=== PATIENT | female | born 1995 | race Caucasian/White ===

== ENCOUNTER 2018-08-01 14:35 | Emergency (ER) | payer OTHER ==
[2018-08-01 14:41] VITALS: BP 112/60; PULSE 86; TEMP 97.3; BMI 19.3
--- NOTE | 2018-08-01 14:52 | PDOC ---
Attending Attestation - Resident Resident Name: Elif Moralez - ED Attending Attestation I have performed the following: I have examined & evaluated the patient, The case was reviewed & discussed with the resident, I agree w/resident's findings & plan, Exceptions are as noted - HPI HPI: 08/01/18 16:51 Agree with Residents HPI - Physicial Exam PE: 08/01/18 16:51 Agree with Residents PE - Medical Decision Making 08/01/18 16:5 89 years old past medical history significant for seizure disorder unknown when last grand mal seizure was patient states she was drinking last night did not sleep well had a grand mal seizure today. Patient states she is compliant with her Depakote. Nonfocal neurologic examination but complaining of moderate headache Given headache we'll CT head dictation by mouth dose of today's Depakote hydrate observed and reassessed. No acute findings on patient's head CT. Patient's Depakote level returned subtherapeutic. Patient now endorses missing several doses of her medication. States she has enough medication at home. We gave her her full dose today. She will continue to take her medications exactly as prescribed and follow up with her neurologist next week. Findings, the need for follow-up and strict return instructions discussed with patient.
[2018-08-01] MEDS ORDERED: ONDANSETRON 4 MG/2 ML VIAL IVPUSH ONE (15:16)
[2018-08-01] MEDS ORDERED: ACETAMINOPHEN 1000 MG/100 ML VIAL (NON FORMULARY) IVPB ONE (15:16)
--- NOTE | 2018-08-01 15:16 | PDOC ---
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 The patient subsequently called EMS. The patient denies urinating on herself but admits to biting her tongue. At bedside she complains of generalized headache and nausea. The patient takes 1000mg daily of depakote for her seizures and last took her medication last night. She denies any recent changes in seizure medications or dosages. She admits to excessive alcohol use last night and marijuana use this morning but denies any other recreational drug use. Denies recent illness, fevers, dysuria, diarrhea, constipation, shortness of breath or chest pain. She started having seizures at the age of 13 for unknown reasons, her last seizure was 1 year ago. She has no other complaints at bedside. PMHX: as in HPI PSHX: see below Meds: fluoxetine, depakote Allergies: sulfa Tob: none Etoh: as in HPI Rec drugs: as in HPI Past History - Past Medical History Allergies/Adverse Reactions: Allergies Allergy/AdvReac Type Severity Reaction Status Date / Time Sulfa (Sulfonamide Allergy Verified 08/01/18 15:09 Antibiotics) zonisamide Allergy Verified 08/01/18 15:09 Home Medications: Ambulatory Orders Divalproex [Depakote] 1,000 mg PO HS 06/05/13 Fluoxetine HCl 20 mg PO HS 08/01/18 COPD: No Seizures: Yes - Suicide/Smoking/Psychosocial Hx Smoking Status: Yes Smoking History: Current some day smoker Number of Cigarettes Smoked Daily: 2 Information on smoking cessation initiated: No *Physical Exam - Vital Signs Last Vital Signs Temp Pulse Resp BP Pulse Ox 97.3 F L 86 18 112/60 100 08/01/18 14:38 08/01/18 14:38 08/01/18 14:38 08/01/18 14:38 08/01/18 14:38 - Physical Exam Comments: 08/01/18 15:25 PERRLA, EOMI L tongue swelling, no abrasions CTAB RRR No CVA tenderness, no abd tenderness ED Treatment Course - LABORATORY CBC & Chemistry Diagram: 08/01/18 15:13 08/01/18 15:13 Medical Decision Making - Medical Decision Making 08/01/18 15:26 23 year old with a history of depression (on fluoxetine) and seizures BIBA after having an unwitnessed seizure that was preceded by tingling in her hands 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 The patient subsequently called EMS. The patient denies urinating on herself but admits to biting her tongue. At bedside she complains of generalized headache and nausea. The patient takes 1000mg daily of depakote for her seizures and last took her medication last night. She denies any recent changes in seizure medications or dosages. She admits to excessive alcohol use last night and marijuana use this morning but denies any other recreational drug use. DDX including but not limited to: breakthrough seizure 2/2 substance use vs noncompliance vs vs intracranial bleed W/U: - cbc, cmp - depakote level - ekg - beta hcg TX: - 1L NS - Zofran - Tylenol - depakote load ED Course: Patient stable at bedside. tired appearing but pleasant. 08/01/18 18:05 Pt reassessed, resting comfortably. Patient stable for discharge. Given follow up instructions and strict return precautions. Patient expressed understanding and agreed to plan. *DC/Admit/Observation/Transfer Diagnosis at time of Disposition: Seizure - Discharge Dispostion Disposition: HOME Condition at time of disposition: Stable Decision to Admit order: No - Referrals Referrals: Tom Treadwell MD [Staff Physician] - - Patient Instructions Printed Discharge Instructions: DI for Seizure Disorder -- Adult Additional Instructions: You were seen in the ED for seizure. In the ED you were evaluated with labwork and imaging. Your results were unremarkable. There does not appear to be an acute need for immediate hospitalization. You are advised to follow up with your primary care physician and neurologist within 1 week. Return to the ED immediately if you experience repeat seizure, worsening headache or nausea, loss of consciousness, fevers, abdominal pain or chest pain. - Post Discharge Activity
[2018-08-01] MEDS ORDERED: ACETAMINOPHEN INJECTION 100 ML IVPB ONE (15:26)
[2018-08-01] MEDS ORDERED: DIVALPROEX SODIUM 500 MG TABLET E.C. ONE (15:26)
[2018-08-01] MEDS ORDERED: ONDANSETRON 4 MG/2 ML VIAL ONE (15:27)
[2018-08-01] MEDS ORDERED: SODIUM CHLORIDE 1,000 ML IV SCH (15:30)
[2018-08-01 15:40] LABS: BASO % 0.3 % (0-2.0); EOS % 0.8 % (0-4.5); HEMATOCRIT 39.2 % (32.4-45.2); HEMOGLOBIN 13.6 GM/dL (10.7-15.3); LYMPH % 16.5 % (8-40); MCHC 34.7 g/dl (32.0-36.0); MEAN CELL VOLUME 92.4 fl (80-96); MEAN PLT VOLUME 9.5 fl (7.5-11.1); MONO % 5.6 % (3.8-10.2); NEUT % 76.8 % (42.8-82.8); PLATELET COUNT 207 K/MM3 (134-434); RBC 4.25 M/mm3 (3.60-5.2); RDW 13.3 % (11.6-15.6)
[2018-08-01] MEDS: DIVALPROEX SODIUM 500 MG TABLET E.C. PO ONE ×2 (16:03→17:01)
[2018-08-01 16:32] LABS: ANION GAP 7 MMOL/L (8-16); BILIRUBIN,TOTAL 0.8 mg/dL (0.2-1.0); BLOOD UREA NITROGEN 12 mg/dL (7-18); CALCIUM 9.1 mg/dL (8.5-10.1); CHLORIDE 101 mmol/L (98-107); CO2 28 mmol/L (21-32); CREATININE 0.7 mg/dL (0.55-1.3); GLUCOSE,RANDOM 75 mg/dL (74-106); POTASSIUM 4.1 mmol/L (3.5-5.1); SGOT/AST 17 U/L (15-37); SGPT/ALT 21 U/L (13-61); SODIUM 136 mmol/L (136-145); TOT PROT 7.4 g/dl (6.4-8.2)
[2018-08-01 16:34] LABS: ALK PHOS 49 U/L (45-117)
--- NOTE | 2018-08-02 09:32 | EKG ---
Test Reason : Blood Pressure : / mmHG Vent. Rate : 077 BPM Atrial Rate : 077 BPM P-R Int : 130 ms QRS Dur : 090 ms QT Int : 400 ms P-R-T Axes : 059 078 043 degrees QTc Int : 452 ms NORMAL SINUS RHYTHM POSSIBLE LEFT ATRIAL ENLARGEMENT NO PREVIOUS ECGS AVAILABLE Confirmed by BISHNU TATE MD ([id number]) on 08/02/2018 9:32:18 AM Referred By: Confirmed By:BISHNU TATE MD
--- NOTE | 2018-08-04 22:17 | EKG ---
Test Reason : Blood Pressure : / mmHG Vent. Rate : 083 BPM Atrial Rate : 083 BPM P-R Int : 136 ms QRS Dur : 088 ms QT Int : 396 ms P-R-T Axes : 062 076 040 degrees QTc Int : 465 ms NORMAL SINUS RHYTHM NORMAL ECG NO PREVIOUS ECGS AVAILABLE Confirmed by ANETA TURNER MD ([id number]) on 08/04/2018 10:17:25 PM Referred By: Confirmed By:ANETA TURNER MD
== END 2018-08-01 19:12 | disposition home or self-care (01) ==
LOC: JER 14:35
PROC: 3E0337Z Introduction of Electrolytic and Water Balance Substance into Peripheral Vein, Percutaneous Approach (ICD-10-PCS; principal; 2018-08-01)
PROC: 3E033NZ Introduction of Analgesics, Hypnotics, Sedatives into Peripheral Vein, Percutaneous Approach (ICD-10-PCS; 2018-08-01)
PROC: 3E033GC Introduction of Other Therapeutic Substance into Peripheral Vein, Percutaneous Approach (ICD-10-PCS; 2018-08-01)
DX: G40.909 Epilepsy, unspecified, not intractable, without status epilepticus (principal); F32.9 Major depressive disorder, single episode, unspecified
CPT/HCPCS: 36415; 70450-TC; 80053; 80164; 84702; 85025; 93005; 93010; 99283-25; J0131; J7030

== ENCOUNTER 2021-05-26 18:56 | Emergency (ER) | payer OTHER ==
[2021-05-26 19:18] VITALS: BMI 20.5
[2021-05-26] MEDS ORDERED: DIVALPROEX NA *ER* EXTEND REL 500 MG TABLET.SA (FP) PO ONE (19:37)
[2021-05-26] MEDS ORDERED: DIVALPROEX SODIUM 500 MG TABLET E.C. PO ONE (19:40)
[2021-05-26 19:52] LABS: HEMOGLOBIN 13.9 GM/dl (10.7-15.3); MCH 30.4 pg (25.7-33.7); RBC 4.56 M/mm3 (3.60-5.2)
[2021-05-26 19:57] LABS: BASO % 1.5 % (0-2.0); EOS % 1.2 % (0-4.5); HEMATOCRIT 41.2 % (32.4-45.2); LYMPH % 40.2 % (8-40); MCHC 33.7 g/dl (32.0-36.0); MEAN CELL VOLUME 90.3 fl (80-96); MEAN PLT VOLUME 9.4 fl (7.5-11.1); MONO % 5.3 % (3.8-10.2); NEUT % 51.8 % (42.8-82.8); PLATELET COUNT 204 10^3/uL (134-434); RDW 13.1 % (11.6-15.6); WHITE BLOOD COUNT 10.5 K/mm3 (4.0-10.8)
[2021-05-26 20:02] LABS: ALBUMIN 4.2 g/dl (3.4-5.0); BILIRUBIN,TOTAL 0.5 mg/dl (0.2-1); CALCIUM 9.1 mg/dl (8.5-10); CREATININE 0.8 mg/dl (0.55-1.3); TOT PROT 7.2 g/dl (6.4-8.2)
[2021-05-26] MEDS ORDERED: POTASSIUM CHLORIDE TABS 20 MEQ TABLET.ER (FP) PO ONE ×2 (20:14)
[2021-05-26 20:37] VITALS: BP 139/79; PULSE 93; TEMP 97.7
== END 2021-05-26 21:42 | disposition home or self-care (01) ==
LOC: FER 18:56
DX: R56.9 Unspecified convulsions (principal)
CPT/HCPCS: 36415; 70450-TC; 80053; 80164; 85025; 99285-25